=== PATIENT | female | born 1970 | race Caucasian/White ===

== ENCOUNTER 2019-10-24 19:55 | Observation (INO) ==
--- OUTSIDE RECORDS SUMMARY | 2019-10-24 19:57 | External Medical Summary | Continuity of Care Document ---
:1970 Author Name Xochilt Aguirre Address Unavailable Unavailable , Care Team Providers Name Role Phone Linwood [email or web address] [place] IZAGUIRRE Unavailable Unavailable Unavailable Unavailable Unavailable Assessments Assessed Problems:Vertigo Problems Vertigo (780.4) (R42) Allergies and Adverse Reactions Azithromycin TABS (Allergy) Penicillins (Allergy) Medications Meclizine HCl - 25 MG Oral Tablet Refills: 0 FLUoxetine HCl - 20 MG Oral Tablet Refills: 0 Kelnor 1/35 TABS Refills: 0 RA Vitamin B-12 TABS Refills: 0 Ativan 0.5 MG Oral Tablet Refills: 0 Procedures History of Tonsillectomy With Adenoidectomy Status: Completed History of Dilation And Curettage Status : Completed Immunizations Immunizations not documented Family History Mother Family history of Cancer Status: Active Father Family history of Cancer Status: Active Family history of Hypertension (V17.49) Status: Active Grandmother Family history of Diabetes Mellitus (V18.0) Status: Active Social History - Smoking Status Never smoker Plan of Treatment Planned Observations Planned Goals not documented Results No Known Results Results not documented Encounters Appointment; Sebastian Khan M.D. 21-May-2014 15:00 Encounter Diagnosis: Problem not documented
[2019-10-24 20:45] LABS: Basophils # (auto) 0.05 K/uL (0-0.2); Basophils % (auto) 0.4 %; Eosinophils # (auto) 0.11 K/uL (0-0.5); Eosinophils % (auto) 0.9 %; Hematocrit (blood only) 37.1 % (37-47); Hemoglobin 12.9 g/dL (12.0-16.0); Immature Granulocytes # (auto) 0.02 K/uL (0.00-0.02); Immature Granulocytes % (auto) 0.2 %; Lymphocytes % (auto) 20.4 %; Mean Corpuscular Hemoglobin 32.7 pg (25-34); Mean Corpuscular Hgb Conc 34.8 g/dL (32-36); Mean Corpuscular Volume 94.2 fL (80-100); Mean Platelet Volume 9.4 fL (7.4-10.4); Monocytes # (auto) 0.72 K/uL (0.11-0.59); Monocytes % (auto) 6.1 %; Neutrophils # (auto) 8.49 K/uL (1.4-6.5); Platelet Count 243 K/uL (130-400); RDW Coefficient of Variation 13.1 % (11.5-14.5); RDW Standard Deviation 45.3 fL (36.4-46.3); Red Blood Count 3.94 M/uL (4.2-5.4); White Blood Count 11.79 K/uL (4.8-10.8)
[2019-10-24 20:50] LABS: Appearance Urine Cloudy (Clear); Bacteria Urine Automated Negative (Negative); Bilirubin Urine Negative (Negative); Blood Urine 2+ (Negative); Cast Urine Automated 0 /lpf (0-5); Color Urine Yellow; Glucose Urine UA Negative (Negative); Ketones Urine 1+ (Negative); Leukocyte Esterase Urine Negative (Negative); Nitrite Urine Negative (Negative); Protein Urine Negative (Negative); Specific Gravity Urine 1.023 (1.000-1.030); Urobilinogen Urine Negative (Negative); pH Urine 5.5 (4.5-7.5)
[2019-10-24 21:01] LABS: Albumin Level 3.5 gm/dl (3.4-5.0); BUN Creatinine Ratio 26.1 (10-20); Calcium 8.7 mg/dl (8.5-10.1); Creatinine Clr Calc Pharmacy 88.2 ml/min; Est GFR (African American) 104.3
[2019-10-24 21:03] LABS: Albumin Globulin Ratio 1.1 (0.9-2); Bilirubin,Total 0.5 mg/dl (0.2-1); Globulin 3.1 gm/dl (2.5-4.0); Total Protein 6.6 gm/dl (6.4-8.2)
[2019-10-24] MEDS ORDERED: IOVERSOL 100ml IV PRN (21:11)
--- NOTE | 2019-10-24 21:44 | CT Scan Report ---
ABDOMEN AND PELVIS CT WITH IV CONTRAST CT DOSE: 372.62 mGy.cm HISTORY: Acute right lower quadrant abdominal pain pt c/o diffuse abd TECHNIQUE: Multiaxial CT images of the abdomen and pelvis were performed following the IV administrat ion of 90 cc of Optiray 320, A dose lowering technique was utilized adhering to the principles of [place] FRANK. COMPARISON STUDY: CT abdomen and pelvis 09/26/2006 FINDINGS: Clear lung bases. No pneumatosis or pneumoperitoneum. The imaged inferior cardiac chambers are unrema rkable. Spleen, pancreas, adrenal glands, gallbladder and liver appear unremarkable. Patency of the h epatic and portal veins. The kidneys and ureters appear unremarkable. Decompressed or bladder with mi ld wall thickening. Retroflexed uterus. Follicular changes of the ovaries. 2.3 cm cystic lesion right adnexum is suggestive of a dominant follicle. Trace free pelvic fluid. Aorta and IVC are unremarkabl e. There is no adenopathy. Obstructing 8 mm appendicolith within the proximal appendiceal lumen. An additional smaller appendico lith of the distal appendix is noted. The appendix is dilated and fluid-filled measuring up to 2.0 cm with mucosal hyperemia and periappendiceal inflammation. No drainable fluid collection or perforatio n. Adjacent fluid-filled loops of small bowel are suggestive of local ileus. Soft tissues are unremar kable. Bones appear to be intact. Spondylitic spurring and facet arthrosis. Reactive lymph nodes of the right lower quadrant mesentery measure up to 8 mm. IMPRESSION: 1. Acute appendicitis with obstructing appendicolith. No perforation or drainable fluid collection. 2. Fluid-filled loops of small bowel within the lower abdomen and pelvis suggest focal ileus. No collin l obstruction. 3. Trace pelvic ascites. ACT 112: Negative or not required by law. The above report was generated using voice recognition software. It may contain grammatical, syntax o r spelling errors. Electronically signed by: Supa Dc M.D. 10/24/2019 9:43 PM
[2019-10-24] MEDS ORDERED: cefOXitin 2,000 MG/60 ML BAG IV STA (21:48)
--- NOTE | 2019-10-24 23:34 | History & Physical Report ---
Date of Service October 24, 2019 Assessment & Plan (1) Appendicitis: This patient's history, physical findings, laboratories and CT findings are consistent with appendicitis. I have recommended a laparoscopic appendectomy. I explained the possible need to convert to an open procedure. I explained the possible complications associated with those procedures. The patient wishes to go ahead with surgery and has signed a consent form. History of Present Illness Chief Complaint: Right lower quadrant pain Primary Care Provider: Herve Whitley MD This is a 48-year-old female who presented to the emergency room with a complaint of pain now centered in the right lower quadrant. The discomfort began as a dull ache-like sensation throughout her abdomen and began yesterday morning. As yesterday progressed the pain became more sharp and then seemed to localize to the right lower quadrant. When she awoke this morning the pain was much worse. It continued to increase in intensity and became quite sharp. It is exacerbated by motion. She has never had pain like this before. She had no fever but said she felt cold. She has not had any change in her bowel habits and denies melena and hematochezia. She denies dysuria and hematuria. Allergies Allergy/AdvReac Type Severity Reaction Status Date / Time Penicillins Allergy Unknown Verified 10/24/19 20:22 Home Medications Home Medications Medication Instructions Recorded Confirmed Type acetaminophen [Tylenol] 325 mg PO QID PRN 10/24/19 10/24/19 History fluoxetine 20 mg PO QAM 10/24/19 10/24/19 History lorazepam 0.5 mg SUBLINGUAL BID PRN 10/24/19 10/24/19 History norethindrone (contraceptive) 0.35 mg PO DAILY@1700 10/24/19 10/24/19 History simethicone 125 mg PO UD 10/24/19 10/24/19 History Past Med/Surg History Medical History (Updated 10/24/19 @ 23:37 by Morgan Cardozo MD) Anxiety and depression Menopause Surgical History (Updated 10/24/19 @ 23:32 by Morgan Cardozo MD) S/P D&C (status post dilation and curettage) Status post tonsillectomy Social History (Updated 10/24/19 @ 23:33 by Morgan Cardozo MD) Preferred Language: Maltese marital status: Feels Safe at Home: Yes Smoking Status: Never smoker Hx Alcohol Use: No Review of Systems Review of Systems: All systems reviewed & are unremarkable except as noted in HPI & below Physical Exam Constitutional: no acute distress Neck: trachea midline Respiratory: normal respiratory effort, lungs clear to auscultation Cardiovascular: Rate/Rhythm: regular rate and regular rhythm Gastrointestinal (Abdomen): Inspection/Auscultation: abdomen not distended Percussion/Palpation: + abdomen tender (Right lower quadrant with referred tenderness from the left lower quadrant) and abdomen soft Skin: no rashes, warm and dry Lymphatic: no cervical lymphadenopathy Results & Data Vital Signs (Past 12 Hours) Vital Signs Temp Pulse Pulse Resp BP BP Pulse Ox 10/24/19 23:26 65 18 127/73 95 10/24/19 22:02 66 66 16 124/79 98 10/24/19 19:59 36.5 C 78 18 122/81 99 Laboratory Results 10/24/19 10/24/19 10/24/19 Range/Units 20:30 20:30 20:30 WBC 11.79 H (4.8-10.8) K/uL RBC 3.94 L (4.2-5.4) M/uL Hgb 12.9 (12.0-16.0) g/dL Hct 37.1 (37-47) % MCV 94.2 (80-100) fL MCH 32.7 (25-34) pg MCHC 34.8 (32-36) g/dL RDW Std Deviation 45.3 (36.4-46.3) fL RDW Coeff of Erma 13.1 (11.5-14.5) % Plt Count 243 (130-400) K/uL MPV 9.4 (7.4-10.4) fL Immature Gran % (Auto) 0.2 % Neut % (Auto) 72.0 % Lymph % (Auto) 20.4 % [place] % (Auto) 6.1 % Eos % (Auto) 0.9 % Baso % (Auto) 0.4 % Immature Gran # (Auto) 0.02 (0.00-0.02) K/uL Neut # (Auto) 8.49 H (1.4-6.5) K/uL Lymph # (Auto) 2.40 (1.2-3.4) K/uL [place] # (Auto) 0.72 H (0.11-0.59) K/uL Eos # (Auto) 0.11 (0-0.5) K/uL Baso # (Auto) 0.05 (0-0.2) K/uL Sodium 138 (136-145) mmol/L Potassium 4.0 (3.5-5.1) mmol/L Chloride 108 H (98-107) mmol/L Carbon Dioxide 25 (21-32) mmol/L Anion Gap 6.0 (3-11) BUN 20 H (7-18) mg/dl Creatinine 0.77 (0.6-1.2) mg/dl Est Cr Clr Drug Dosing 88.2 ml/min Est GFR ( Amer) 104.3 Est GFR (Non-Af Amer) 90.0 BUN/Creatinine Ratio 26.1 H (10-20) Glucose 103 H (70-99) mg/dl Calcium 8.7 (8.5-10.1) mg/dl Total Bilirubin 0.5 (0.2-1) mg/dl AST 11 L (15-37) U/L ALT 16 (12-78) U/L Alkaline Phosphatase 59 (45-117) U/L Total Protein 6.6 (6.4-8.2) gm/dl Albumin 3.5 (3.4-5.0) gm/dl Globulin 3.1 (2.5-4.0) gm/dl Albumin/Globulin Ratio 1.1 (0.9-2) Lipase 99 (73-393) U/L Urine Color Yellow Urine Appearance Cloudy A (Clear) Urine pH 5.5 (4.5-7.5) Ur Specific [place] 1.023 (1.000-1.030) Urine Protein Negative (Negative) Urine Glucose (UA) Negative (Negative) Urine Ketones 1+ H (Negative) Urine Blood 2+ H (Negative) Urine Nitrite Negative (Negative) Urine Bilirubin Negative (Negative) Urine Urobilinogen Negative (Negative) Ur Leukocyte Esterase Negative (Negative) Urine WBC (Auto) 1-5 (0-5) /hpf Urine RBC (Auto) 10-30 H (0-4) /hpf U Hyaline Cast (Auto) 0 (0-5) /lpf U Epithel Cells (Auto) 10-20 H (0-5) /lpf Urine Bacteria (Auto) Negative (Negative) Diagnostic Findings I reviewed the images as well as the report ABDOMEN AND PELVIS CT WITH IV CONTRAST CT DOSE: 372.62 mGy.cm HISTORY: Acute right lower quadrant abdominal pain pt c/o diffuse abd TECHNIQUE: Multiaxial CT images of the abdomen and pelvis were performed following the IV administration of 90 cc of Optiray 320, A dose lowering technique was utilized adhering to the principles of ALARA. COMPARISON STUDY: CT abdomen and pelvis 09/26/2006 FINDINGS: Clear lung bases. No pneumatosis or pneumoperitoneum. The imaged inferior cardiac chambers are unremarkable. Spleen, pancreas, adrenal glands, gallbladder and liver appear unremarkable. Patency of the hepatic and portal veins. The kidneys and ureters appear unremarkable. Decompressed or bladder with mild wall thickening. Retroflexed uterus. Follicular changes of the ovaries. 2.3 cm cystic lesion right adnexum is suggestive of a dominant follicle. Trace free pelvic fluid. Aorta and IVC are unremarkable. There is no adenopathy. Obstructing 8 mm appendicolith within the proximal appendiceal lumen. An additional smaller appendicolith of the distal appendix is noted. The appendix is dilated and fluid-filled measuring up to 2.0 cm with mucosal hyperemia and periappendiceal inflammation. No drainable fluid collection or perforation. Adjacent fluid-filled loops of small bowel are suggestive of local ileus. Soft tissues are unremarkable. Bones appear to be intact. Spondylitic spurring and facet arthrosis. Reactive lymph nodes of the right lower quadrant mesentery measure up to 8 mm. IMPRESSION: 1. Acute appendicitis with obstructing appendicolith. No perforation or drainable fluid collection. 2. Fluid-filled loops of small bowel within the lower abdomen and pelvis suggest focal ileus. No bowel obstruction. 3. Trace pelvic ascites. (1) Appendicitis Appendicitis type: acute appendicitis Acute appendicitis type: with localized peritonitis Appendicitis perforation presence: without perforation Appendicitis abscess presence: without abscess
[2019-10-24] MEDS ORDERED: HEPARIN (PORCINE) 1000 UNIT/ML 10 ML (CATH LAB USE ONLY) ONE (23:59)
[2019-10-24] MEDS ORDERED: CEFAZOLIN 250 MG/ML 1 GM VIAL ONE (23:59)
[2019-10-24] MEDS ORDERED: BUPIVACAINE 0.5 % 5 MG/1 ML MPF 30ML VIAL ONE (23:59)
--- NOTE | 2019-10-25 00:29 | Anesthesiology Consultation ---
Date of Service October 25, 2019 Assessment & Plan Chart Review Chart Review: Acceptable Risk for Surgery Consults Requested none History Surgery Operation Date: 10/24/19 23:50 Proposed Procedures p Laparoscopic Appendectomy - Morgan Cardozo MD Height/Weight Height: 5 ft 8 in Weight: 73.3 kg Allergies Allergy/AdvReac Type Severity Reaction Status Date / Time Penicillins Allergy Unknown Verified 10/24/19 20:22 Medications Home Medications Medication Instructions Recorded Confirmed Last Taken acetaminophen [Tylenol] 325 mg PO QID PRN 10/24/19 10/24/19 10/24/19 08:00 650 mg fluoxetine 20 mg PO QAM 10/24/19 10/24/19 10/24/19 lorazepam 0.5 mg SUBLINGUAL BID PRN 10/24/19 10/24/19 10/22/19 norethindrone (contraceptive) 0.35 mg PO DAILY@1700 10/24/19 10/24/19 10/24/19 17:00 simethicone 125 mg PO UD 10/24/19 10/24/19 10/24/19 16:00 2 tablets Active Medications Generic Name Dose Route Start Last Admin Trade Name Freq PRN Reason Stop Dose Admin Ioversol 90 ml 10/24/19 21:11 10/24/19 21:11 Optiray 320 100ml IV 10/28/19 21:10 90 ml ONCE PRN Administration Interaction Checking NPO Date Last Intake of Fluids: 10/24/19 Time Last Intake of Fluids: 16:00 Date Last Intake of Solids: 10/24/19 Time Last Intake of Solids: 16:00 Past Medical History Medical History (Updated 10/24/19 @ 23:37 by Morgan Cardozo MD) Anxiety and depression Menopause Exercise / Class Metabolic Activity II 4-5 Yardwork/Stairs/Walk up hill Past Surgical History Surgical History (Updated 10/24/19 @ 23:32 by Morgan Cardozo MD) S/P D&C (status post dilation and curettage) Status post tonsillectomy Past Anesthesia History No Hx of Anesthesia Complications and No Family Hx of Anesthesia Complications History of PONV No Hx of PONV and No Hx of Motion Sickness Social History Smoking Status: Never smoker Hx Alcohol Use: No Physical Exam Vital Signs Last Vital Signs Temp 36.5 C 10/24/19 19:59 Pulse 64 10/25/19 00:05 Resp 18 10/25/19 00:05 BP 119/64 10/25/19 00:05 Pulse Ox 96 10/25/19 00:05 Testing Laboratory Results 10/24/19 20:30 10/24/19 20:30 Urine Color Yellow 10/24/19 20:30 Urine Appearance Cloudy (Clear) A 10/24/19 20:30 Urine pH 5.5 (4.5-7.5) 10/24/19 20:30 Ur Specific [place] 1.023 (1.000-1.030) 10/24/19 20:30 Urine Protein Negative (Negative) 10/24/19 20:30 Urine Glucose (UA) Negative (Negative) 10/24/19 20: Urine Ketones 1+ (Negative) H 10/24/19 20:30 Urine Nitrite Negative (Negative) 10/24/19 20:30 Ur Leukocyte Esterase Negative (Negative) 10/24/19 20:30 Urine WBC (Auto) 1-5 /hpf (0-5) 10/24/19 20:30 Urine RBC (Auto) 10-30 /hpf (0-4) H 10/24/19 20:30 U Hyaline Cast (Auto) 0 /lpf (0-5) 10/24/19 20:30 U Epithel Cells (Auto) 10-20 /lpf (0-5) H 10/24/19 20:30 Urine Bacteria (Auto) Negative (Negative) 10/24/19 20:30
[2019-10-25] MEDS ORDERED: ONDANSETRON INJ 2 MG/ML 2 ML VIAL IV PRN ×2 (00:30→03:23)
[2019-10-25] MEDS ORDERED: HYDROmorphone INJ 1 MG/ML SYRINGE IV PRN (00:30)
[2019-10-25] MEDS ORDERED: MoRPHine SULFATE 10 MG/ML CARP/VIAL IV PRN (00:30)
[2019-10-25] MEDS ORDERED: HYDROmorphone INJ 2 MG/ML SYR/VIAL IV PRN (00:30)
[2019-10-25] MEDS ORDERED: METOCLOPRAMIDE HCL INJ 5 MG/ML 2 ML VIAL IV PRN (00:30)
[2019-10-25] MEDS ORDERED: ATROPINE SULFATE 0.1 MG/ML 10ML SYR IV PRN (00:30)
[2019-10-25] MEDS ORDERED: PROMETHAZINE HCL 12.5 MG in SODIUM CHLORIDE 0.9% 50 ML IV PRN (00:30)
[2019-10-25] MEDS ORDERED: ePHEDrine sulfate 50 MG/ML AMP IV PRN (00:30)
[2019-10-25] MEDS ORDERED: MIDAZOLAM HCL 1 MG/ML 2ML VIAL ONE (00:33)
[2019-10-25] MEDS ORDERED: fentaNYL citrate 100 MCG/2 ML VIAL ONE ×2 (00:33→02:10)
[2019-10-25] MEDS ORDERED: NEOSTIGMINE METHYLSULFATE 5 MG/5 ML SYR ONE (00:59)
[2019-10-25] MEDS ORDERED: GLYCOPYRROLATE 0.2 MG/ML VIAL ONE (00:59)
[2019-10-25] MEDS ORDERED: PROPOFOL IV EMULSION 10 MG/ML 20 ML VIAL IV ONE (00:59)
[2019-10-25] MEDS ORDERED: ONDANSETRON INJ 2 MG/ML 2 ML VIAL ONE ×2 (00:59→02:10)
[2019-10-25] MEDS ORDERED: DEXAMETHASONE SOD INJ 4 MG/ML VIAL ONE (00:59)
[2019-10-25] MEDS ORDERED: ROCURONIUM BROMID 50MG/5ML SYR ONE (00:59)
--- NOTE | 2019-10-25 01:09 | Emergency Department Note ---
Entered by Angelina Cox acting as a scribe for History of Present Illness General Chief complaint: Abdominal Pain Stated complaint: ABDOMINAL PAIN Time Seen by Provider: 10/24/19 20:06 History of Present Illness Provider complaint: abdominal pain Onset (ago): day(s) 1 Location: abdomen Radiation: back and extremity (left lower) Pain Consistency: + other (worsening) Maximum Pain Intensity: 7 Associated symptoms: + other (started on right side but now all over, small bowel movement today, not eating much, going through menopause, under a lot of stress, negative ) The patient is a 48 year old female who presents to the ED with complaints of worsening abdominal pain that started 1 day ago. The patient states that the pain was mostly on her right side but now it is all over her abdomen. The patient states that her pain radiates to her back and left leg. The patient notes that she has not been eating much and she had a small bowel movement today that was normal. The patient notes that she is going through menopause and has been under a lot of stress lately. The patient states that she took a test today and it was negative. Home Medications Home Medications Medication Instructions Recorded Confirmed Type acetaminophen [Tylenol] 325 mg PO QID PRN 10/24/19 10/24/19 History fluoxetine 20 mg PO QAM 10/24/19 10/24/19 History lorazepam 0.5 mg SUBLINGUAL BID PRN 10/24/19 10/24/19 History norethindrone (contraceptive) 0.35 mg PO DAILY@1700 10/24/19 10/24/19 History simethicone 125 mg PO UD 10/24/19 10/24/19 History Allergies Allergy/AdvReac Type Severity Reaction Status Date / Time Penicillins Allergy Unknown Verified 10/24/19 20:22 Past Med/Surg History Medical History (Updated 10/25/19 @ 01:09 by Donald Smith MD) Anxiety and depression Menopause Surgical History (Updated 10/24/19 @ 23:32 by Morgan Cardozo MD) S/P D&C (status post dilation and curettage) Status post tonsillectomy Social History (Updated 10/24/19 @ 23:33 by Morgan Cardozo MD) Preferred Language: Kazakh marital status: Feels Safe at Home: Yes Smoking Status: Never smoker Hx Alcohol Use: No Review of Systems See HPI for pertinent positives & negatives. and A total of 10 systems reviewed and were otherwise negative Physical Exam Vital Signs Vital Signs - 24 hr 10/24/19 19:59 10/24/19 22:02 10/24/19 23:26 Temperature 36.5 C Temperature Source Oral Pulse Rate 78 66 Pulse Rate [Right Finger] 66 65 Pulse Rhythm Regular Respiratory Rate 18 16 18 Respiratory Effort / Characteristics Non-Labored Spontaneous Respiratory Depth Normal Normal Respiratory Pattern Regular Blood Pressure 122/81 Blood Pressure [Right Arm] 124/79 127/73 Blood Pressure Mean 94 Blood Pressure Mean [Right Arm] 94 91 Blood Pressure Position Sitting Blood Pressure Position [Right Arm] Lying Pulse Oximetry 99 98 95 Oxygen Delivery Method Room Air Room Air Room Air Sepsis Recent Fever Within 48 Hours No Sepsis Action Taken by Nursing No Action Required 10/25/19 00:05 Temperature Temperature Source Pulse Rate Pulse Rate [Right Finger] 64 Pulse Rhythm Respiratory Rate 18 Respiratory Effort / Characteristics Respiratory Depth Respiratory Pattern Blood Pressure Blood Pressure [Right Arm] 119/64 Blood Pressure Mean Blood Pressure Mean [Right Arm] 82 Blood Pressure Position Blood Pressure Position [Right Arm] Pulse Oximetry 96 Oxygen Delivery Method Room Air Sepsis Recent Fever Within 48 Hours Sepsis Action Taken by Nursing GENERAL: Awake, alert, well-appearing, in no acute distress HENT: Normocephalic, atraumatic. Oropharynx unremarkable. EYES: Normal conjunctiva. Sclera non-icteric. NECK: Supple. No nuchal rigidity. FROM. No JVD. RESPIRATORY: Clear to auscultation. CARDIAC: Regular rate, normal rhythm. Extremities warm and well perfused. Pulses equal. ABDOMEN: Soft, non-distended. RLQ tenderness. Positive rebound, positive guard ing. No masses. RECTAL: Deferred. MUSCULOSKELETAL: Chest examination reveals no tenderness. The back is symmetrical on inspection without obvious abnormality. There is no CVA tenderness to palpation. No joint edema. LOWER EXTREMITIES: Calves are equal size bilaterally and non-tender. No edema. No discoloration. NEURO: Normal sensorium. No sensory or motor deficits noted. SKIN: No rash or jaundice noted. Course Course 2009: Past medical records reviewed. The patient was evaluated in room B03B. A complete history and physical exam was performed. 2130: I updated the patient on the test results. 2147: I discussed the patient's case with Dr. Cardozo- General Surgery. He will evaluate the patient for further management. Consultations Consultation #1: I discussed the patient's case with Dr. Cardozo- General Surgery. He will evaluate the patient for further management. Time: 21:48 Administered Medications Ioversol (Optiray 320 100ml) 90 ml IV ONCE PRN PRN Reason: Interaction Checking Stop: 10/28/19 21:10 Last Admin: 10/24/19 21:11 Dose: 90 ml Documented by: [id number] Discontinued Medications Cefoxitin Sodium (Mefoxin) 2,000 mg in 60 mls @ 100 mls/hr IV NOW STA Stop: 10/24/19 22:23 Last Infusion: 10/24/19 22:48 Dose: 0 mls/hr Documented by: [id number] Admin: 10/24/19 22:01 Dose: 100 mls/hr Documented by: [id number] Medical Decision Making Differential Diagnosis Differential diagnosis: Etiologies such as biliary colic, cholecystitis, hepatitis, perihepatitis, pancreatitis, cardiac disease, pancreatitis, gastritis, peptic ulcer disease, appendicitis, ovarian cyst, ovarian torsion, ectopic , pelvic inflammatory disease, cystitis, diverticulitis, mesenteric ischemia, inflammator y bowel disease, ileus, bowel obstruction, aortic pathology, shingles, as well as others were considered. Medical Records Attestation: I reviewed the patient's medical records. Home Medications Current Medication List: was personally reviewed by me Laboratory Data Attestation: I reviewed the patient's lab results. Result diagrams: 10/24/19 20:30 10/24/19 20:30 Lab Results 10/24/19 10/24/19 10/24/19 Range/Units 20:30 20:30 20:30 WBC 11.79 H (4.8-10.8) K/uL RBC 3.94 L (4.2-5.4) M/uL Hgb 12.9 (12.0-16.0) g/dL Hct 37.1 (37-47) % MCV 94.2 (80-100) fL MCH 32.7 (25-34) pg MCHC 34.8 (32-36) g/dL RDW Std Deviation 45.3 (36.4-46.3) fL RDW Coeff of Erma 13.1 (11.5-14.5) % Plt Count 243 (130-400) K/uL MPV 9.4 (7.4-10.4) fL Immature Gran % (Auto) 0.2 % Neut % (Auto) 72.0 % Lymph % (Auto) 20.4 % [place] % (Auto) 6.1 % Eos % (Auto) 0.9 % Baso % (Auto) 0.4 % Immature Gran # (Auto) 0.02 (0.00-0.02) K/uL Neut # (Auto) 8.49 H (1.4-6.5) K/uL Lymph # (Auto) 2.40 (1.2-3.4) K/uL [place]ferro # (Auto) 0.72 H (0.11-0.59) K/uL Eos # (Auto) 0.11 (0-0.5) K/uL Baso # (Auto) 0.05 (0-0.2) K/uL Sodium 138 (136-145) mmol/L Potassium 4.0 (3.5-5.1) mmol/L Chloride 108 H (98-107) mmol/L Carbon Dioxide 25 (21-32) mmol/L Anion Gap 6.0 (3-11) BUN 20 H (7-18) mg/dl Creatinine 0.77 (0.6-1.2) mg/dl Est Cr Clr Drug Dosing 88.2 ml/min Est GFR ( Amer) 104.3 Est GFR (Non-Af Amer) 90.0 BUN/Creatinine Ratio 26.1 H (10-20) Glucose 103 H (70-99) mg/dl Calcium 8.7 (8.5-10.1) mg/dl Total Bilirubin 0.5 (0.2-1) mg/dl AST 11 L (15-37) U/L ALT 16 (12-78) U/L Alkaline Phosphatase 59 (45-117) U/L Total Protein 6.6 (6.4-8.2) gm/dl Albumin 3.5 (3.4-5.0) gm/dl Globulin 3.1 (2.5-4.0) gm/dl Albumin/Globulin Ratio 1.1 (0.9-2) Lipase 99 (73-393) U/L Urine Color Yellow Urine Appearance Cloudy A (Clear) Urine pH 5.5 (4.5-7.5) Ur Specific [place] 1.023 (1.000-1.030) Urine Protein Negative (Negative) Urine Glucose (UA) Negative (Negative) Urine Ketones 1+ H (Negative) Urine Blood 2+ H (Negative) Urine Nitrite Negative (Negative) Urine Bilirubin Negative (Negative) Urine Urobilinogen Negative (Negative) Ur Leukocyte Esterase Negative (Negative) Urine WBC (Auto) 1-5 (0-5) /hpf Urine RBC (Auto) 10-30 H (0-4) /hpf U Hyaline Cast (Auto) 0 (0-5) /lpf U Epithel Cells (Auto) 10-20 H (0-5) /lpf Urine Bacteria (Auto) Negative (Negative) Imaging Data Radiologist's Impression: Radiology results as stated below per my review and the radiologist's interpretation: ABDOMEN AND PELVIS CT WITH IV CONTRAST CT DOSE: 372.62 mGy.cm HISTORY: Acute right lower quadrant abdominal pain pt c/o diffuse abd TECHNIQUE: Multiaxial CT images of the abdomen and pelvis were performed following the IV administration of 90 cc of Optiray 320, A dose lowering technique was utilized adhering to the principles of ALARA. COMPARISON STUDY: CT abdomen and pelvis 09/26/2006 FINDINGS: Clear lung bases. No pneumatosis or pneumoperitoneum. The imaged inferior cardiac chambers are unremarkable. Spleen, pancreas, adrenal glands, gallbladder and liver appear unremarkable. Patency of the hepatic and portal veins. The kidneys and ureters appear unremarkable. Decompressed or bladder with mild wall thickening. Retroflexed uterus. Follicular changes of the ovaries. 2.3 cm cystic lesion right adnexum is suggestive of a dominant follicle. Trace free pelvic fluid. Aorta and IVC are unremarkable. There is no adenopathy. Obstructing 8 mm appendicolith within the proximal appendiceal lumen. An additional smaller appendicolith of the distal appendix is noted. The appendix is dilated and fluid-filled measuring up to 2.0 cm with mucosal hyperemia and periappendiceal inflammation. No drainable fluid collection or perforation. Adjacent fluid-filled loops of small bowel are suggestive of local ileus. Soft tissues are unremarkable. Bones appear to be intact. Spondylitic spurring and facet arthrosis. Reactive lymph nodes of the right lower quadrant mesentery measure up to 8 mm. IMPRESSION: 1. Acute appendicitis with obstructing appendicolith. No perforation or drainable fluid collection. 2. Fluid-filled loops of small bowel within the lower abdomen and pelvis suggest focal ileus. No bowel obstruction. 3. Trace pelvic ascites. ACT 112: Negative or not required by law. The above report was generated using voice recognition software. It may contain grammatical, syntax or spelling errors. Electronically signed by: Supa Dc M.D. 10/24/2019 9:43 PM Blood Pressure Blood Pressure Findings: Elevated blood pressure Blood Pressure Disposition: further management by hospitalist DUTCH Narrative This is a 48-year-old female who presents emergency department complaining of right lower quadrant abdominal pain. The patient does have an elevation in her white blood cell count 11.79. Using shared medical decision making with the patient patient was sent for CAT scan the abdomen pelvis. This was concerning for acute appendicitis. For this reason the patient was started on Mefoxin. I did discuss the case with the surgeon on-call who agreed to take the patient to the operating room. Patient and family were in agreement with the treatment plan. Impression & Plan Abdominal pain, Appendicitis Discharge Plan Visit Data *Final* Discharge Date/Time: 10/25/19 00:07 Chief Complaint: Abdominal Pain Stated Complaint: ABDOMINAL PAIN ED Provider: Donald Smith Discharge Problem: Abdominal pain, Appendicitis Patient Disposition: Being Evaluated by Surgeon Discharge Instructions Interventions: ED Discharge Assessment Last Done: 10/25/19 00:07 Discharge Problem: Abdominal pain Qualifiers: Abdominal location: right lower quadrant Qualified Code(s): R10.31 - Right lower quadrant pain Appendicitis Qualifiers: Appendicitis type: acute appendicitis Acute appendicitis type: unspecified acute appendicitis type Qualified Code(s): K35.80 - Unspecified acute appendicitis The scribe's documentation has been prepared under my direction and personally reviewed by me in its entirety. I confirm that the note above accurately reflects all work, treatment, procedures, and medical decision making performed by me.
--- NOTE | 2019-10-25 01:54 | Post Operative Brief Note ---
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
[2019-10-25] MEDS: fentaNYL citrate 100 MCG/2 ML VIAL IV PRN ×4 (02:11→02:26)
--- NOTE | 2019-10-25 02:21 | Anesthesiology Progress Note ---
Date of Service October 25, 2019 Anesthesia Post Procedure Vital Signs Vital Signs: Temp Pulse Pulse Pulse Resp BP BP 10/25/19 02:20 57 L 15 112/62 10/25/19 02:10 53 L 15 111/65 10/25/19 02:03 36.5 C 51 L 14 110/59 L 10/25/19 00:05 64 18 10/24/19 23:26 65 18 10/24/19 22:02 66 66 16 10/24/19 19:59 36.5 C 78 18 122/81 BP Pulse Ox 10/25/19 02:20 97 10/25/19 02:10 98 10/25/19 02:03 100 10/25/19 00:05 119/64 96 10/24/19 23:26 127/73 95 10/24/19 22:02 124/79 98 10/24/19 19:59 99 Pain Intensity Abdomen: Pain Intensity: 6 Transfer of Care Handoff Completed per policy Notes Mental Status: alert / awake / arousable and participated in evaluation Patient Amnestic to Procedure: Yes Nausea / Vomiting: adequately controlled Pain: adequately controlled Airway Patency, RR, SpO2: stable & adequate BP & HR: stable & adequate Hydration State: stable & adequate Anesthetic Complications: no major complications apparent
[2019-10-25] MEDS ORDERED: ACETAMINOPHEN 1,000 MG/100 ML VIAL IV STA (02:24)
[2019-10-25] MEDS ORDERED: ACETAMINOPHEN 1000 MG/100 ML IV IV ONE (02:26)
[2019-10-25] MEDS ORDERED: LORazepam 0.5 MG TAB SL PRN (03:23)
[2019-10-25] MEDS ORDERED: ACETAMINOPHEN 325 MG TAB PO PRN (03:23)
[2019-10-25] MEDS ORDERED: OXYCODONE/ACETAMINOPHEN 5mg/325mg TAB PO PRN (03:23)
[2019-10-25] MEDS ORDERED: MoRPHine SULFATE 4 MG/ML 1 ML CARP\\VIAL IV PRN (03:23)
[2019-10-25] MEDS ORDERED: SIMETHICONE 80 MG CHEW PO PRN (03:45)
[2019-10-25] MEDS: D5W AND 1/2NSS + 20MEQ KCL 20 MEQ/1,000 ML BAG IV SCH ×2 (04:02→14:01)
--- NOTE | 2019-10-25 07:56 | Operative Report ---
DATE OF OPERATION: 10/25/2019 PREOPERATIVE DIAGNOSIS: Appendicitis. POSTOPERATIVE DIAGNOSIS: Appendicitis. PROCEDURE: Laparoscopic appendectomy. SURGEON: Morgan Cardozo MD. FINDINGS: The appendix in its distal four-fifths was dilated markedly. It was hyperemic and firm. The base of the appendix and the cecum at the base of the appendix were normal. There was no evidence of perforation or abscess. TECHNIQUE: The patient was given a general anesthetic and the area was prepped and draped in the usual sterile fashion. Transverse incision was made below the umbilicus, carried down through the subcutaneous tissue to the fascia which was grasped with 2 Onesimo clamps and incised between. The peritoneum was identified, incised and the introducer was placed bluntly. The abdomen was then insufflated to a pressure of 15 mmHg with carbon dioxide. The skin had been anesthetized with 0.5% Marcaine prior to incision. A site for the lower midline introducer was chosen. Skin incision was made and the introducer was placed under direct vision. The appendix was easily identified lying inferior to the cecum. The left lower quadrant introducer was placed under direct vision through small skin incision. I was able to elevate the appendix away from the posterior abdominal wall and elevate it. There were some other thicker attachments to the lateral abdominal wall that were divided using cautery. This allowed me to then elevate the appendix and separate it bluntly away from the remainder of the floor of the canal and from the mesentery of the cecum. That then allowed me to identify the medial wall and I was able to separate that away from the mesentery of the cecum as well. This allowed me then to expose with confidence and identify the base of the appendix. I was able to establish a plane between the mesoappendix and the base of the appendix. It was difficult to elevate the tip of the appendix away from the mesentery of the cecum and so I used Endo-CHINA stapler and amputated the appendix at its base. That allowed me then to place traction near the staple line and allowed me then to further separate the mesoappendix away from the cecum and away from the mesentery of the cecum until it was completely freed. I then divided the mesoappendix with the Endo-CHINA stapler. The appendix was placed into an Endobag and brought out through the left lower quadrant introducer site. That introducer was replaced. The right lower quadrant was irrigated. There was 1 area of oozing near the staple line and the mesoappendix was easily controlled with cautery. Further irrigation was performed. The irrigation was removed. The staple lines were inspected and there was no bleeding. Any irrigation that entered the pelvis or the right upper quadrant was then removed. The staple lines were inspected another time and there was no bleeding. The gas was allowed to escape and the introducers were removed. The fascia of the umbilical and left lower quadrant introducer sites was closed with interrupted 0 Vicryl and skin of all the incisions was closed with 4-0 Monocryl in either an interrupted or running subcuticular fashion. Further local was placed. The skin was cleansed, dried, benzoin placed, Steri-Strips applied. Estimated blood loss was 5 mL. Sponge, needle and instrument counts were correct prior to closure. The patient tolerated the surgical procedure without complication and was transferred to recovery. I attest to the content of the Intraoperative Record and any orders documented therein. Any exception s are noted below.
[2019-10-25] MEDS ORDERED: ORAL CONTRACEPTIVE~ORDER AWAITING ACTION SCH (08:00)
[2019-10-25] MEDS: FLUOXETINE HCL 20 MG CAP PO SCH (09:40)
--- NOTE | 2019-10-25 10:08 | Surgery Progress Note ---
Date of Service October 25, 2019 Assessment & Plan (1) Appendicitis: Postoperative day 0 status post laparoscopic appendectomy Hemodynamically stable Having some nausea but has not vomited Would not discharge at present due to nausea, if this improves this afternoon we can reevaluate otherwise she will need to stay until tomorrow Encouraged ambulation Subjective Postoperative day 0 status post laparoscopic appendectomy for acute appendicitis Having mild discomfort Preoperative pain is resolved Has nausea but has not vomited Ate a little bit this morning for breakfast but appetite has not yet returned Physical Exam Gastrointestinal (Abdomen): Inspection/Auscultation: normal bowel sounds; abdomen not distended Percussion/Palpation: + abdomen tender (Incisional) and abdomen soft Results & Data Vital Signs (Past 12 Hours) Vital Signs Temp Pulse Pulse Resp BP BP Pulse Ox 10/25/19 07:38 36.6 C 55 L 16 108/63 96 10/25/19 06:20 36.7 C 55 L 14 99/59 L 95 10/25/19 05:20 36.8 C 59 L 14 101/63 94 10/25/19 04:20 36.5 C 58 L 14 105/65 95 10/25/19 03:50 36.6 C 57 L 16 108/65 94 10/25/19 03:20 36.9 C 55 L 14 109/69 96 10/25/19 03:05 58 L 16 105/60 93 10/25/19 02:50 58 L 16 106/62 93 10/25/19 02:40 36.7 C 56 L 16 105/62 93 10/25/19 02:30 63 15 107/66 97 10/25/19 02:20 57 L 15 112/62 97 10/25/19 02:10 53 L 15 111/65 98 10/25/19 02:03 36.5 C 51 L 14 110/59 L 100 10/25/19 00:05 64 18 119/64 96 10/24/19 23:26 65 18 127/73 95 (1) Appendicitis Appendicitis type: acute appendicitis Acute appendicitis type: unspecified acute appendicitis type Qualified Code(s): K35.80 - Unspecified acute appendicitis
[2019-10-25] MEDS: PATIENT'S OWN ORAL CONTRACEPTIVE PO SCH (16:22)
[2019-10-26] MEDS: D5W AND 1/2NSS + 20MEQ KCL 20 MEQ/1,000 ML BAG IV SCH ×2 (00:08→11:26)
[2019-10-26] MEDS ORDERED: TRAMADOL HCL 50 MG TABLET PO PRN (07:45)
[2019-10-26] MEDS ORDERED: ACETAMINOPHEN 325 MG TAB PO PRN (07:45)
--- NOTE | 2019-10-26 07:51 | Surgery Progress Note ---
Date of Service October 26, 2019 Assessment & Plan (1) Appendicitis: Postoperative day 1 status post laparoscopic appendectomy Hemodynamically stable Nausea improved Plan: PO tylenol prn pain 650 mg every 6 hours as needed Tramadol ordered prn pain Decrease IV fluids to 50 mls/hr for now if tolerates breakfast dc fluids Encouraged ambulation if does well can discharge home, will evaluate later this morning Subjective feeling better, nausea improved passing gas this morning has not ambulated hallway tolerated regular diet last night no chest pain or SOB Physical Exam Constitutional: WD/WN, vitals as above no acute distress Respiratory: normal respiratory effort Gastrointestinal (Abdomen): Inspection/Auscultation: abdomen normal to inspection; abdomen not distended Percussion/Palpation: + abdomen tender (at incisions only) and abdomen soft; no guarding and abdomen not rigid Skin: no rashes, warm and dry Psychiatric: A+Ox3, euthymic affect Results & Data Vital Signs (Past 12 Hours) Vital Signs Temp Pulse Resp BP Pulse Ox 10/26/19 02:44 36.7 C 55 L 16 107/68 94 10/25/19 23:11 36.6 C 57 L 16 107/66 94 (1) Appendicitis Appendicitis type: acute appendicitis Acute appendicitis type: unspecified acute appendicitis type Qualified Code(s): K35.80 - Unspecified acute appendicitis
--- NOTE | 2019-10-26 08:03 | Anesthesiology Progress Note ---
Date of Service October 26, 2019 Anesthesia Post Procedure Vital Signs Vital Signs: Temp Pulse Pulse Resp BP Pulse Ox 10/26/19 07:50 36.6 C 51 L 19 126/80 96 10/26/19 07:00 36.8 C 57 L 18 119/63 95 10/26/19 02:44 36.7 C 55 L 16 107/68 94 10/25/19 23:11 36.6 C 57 L 16 107/66 94 10/25/19 15:06 36.8 C 57 L 16 107/67 95 10/25/19 12:10 37.0 C 58 L 16 103/63 96 Pain Intensity Abdomen: Pain Intensity: 2 Right Shoulder: Pain Intensity: 5 Notes Mental Status: alert / awake / arousable and participated in evaluation Nausea / Vomiting: adequately controlled Pain: adequately controlled Airway Patency, RR, SpO2: stable & adequate BP & HR: stable & adequate Hydration State: stable & adequate
[2019-10-26] MEDS: FLUOXETINE HCL 20 MG CAP PO SCH (09:05)
[2019-10-26] MEDS: PATIENT'S OWN ORAL CONTRACEPTIVE PO SCH (09:05)
--- NOTE | 2019-10-27 10:32 | Discharge Summary ---
Date of Service October 27, 2019 Admission HPI Per Admitting Provider This is a 48-year-old female who presented to the emergency room with a complaint of pain now centered in the right lower quadrant. The discomfort began as a dull ache-like sensation throughout her abdomen and began yesterday morning. As yesterday progressed the pain became more sharp and then seemed to localize to the right lower quadrant. When she awoke this morning the pain was much worse. It continued to increase in intensity and became quite sharp. It is exacerbated by motion. She has never had pain like this before. She had no fever but said she felt cold. She has not had any change in her bowel habits and denies melena and hematochezia. She denies dysuria and hematuria. Principal Diagnosis Acute Appendicitis Discharge Data Allergies Allergy/AdvReac Type Severity Reaction Status Date / Time Penicillins Allergy Unknown Verified 10/24/19 20:22 Consultations 10/24/19 21:49 Consult General Surgery Stat Procedures Performed Operation Date: 10/24/19 23:50 Actual Procedures p Laparoscopic Appendectomy - Morgan Cardozo MD Ordered Studies 10/24/19 20:16 CT abd pelvis IV con only Stat Hospital Course (1) Appendicitis: Patient was taken to operating room for laparoscopic appendectomy by Dr. Cardozo. Patient found to have acute appendicitis without perforation or abscess. Patient tolerated procedure well and transferred to recovery then med/surg floor for postoperative care. IV fluids continued, diet advanced as tolerated, PO Percocet with breakthrough Morphine prn pain. POD# 0 vitals stable, afebrile, however had postoperative nausea. She was kept overnight to control nausea. POD # 1, vitals stable, afebrile, nausea resolved, pain moderate limiting ambulation but patient did not want to take narcotics. Advised extra strength Tylenol. Patient did well throughout day and was discharged home on POD # 1 in stable condition. Total Time Total Time Spent Total Time Spent (In Minutes): 30 Total Time Includes: Examination of the Patient, Discharge Planning and Medication Reconciliation Discharge Plan Discharge Items Patient Disposition: Home - Self-Care Reason For Visit: APPENDICITIS Discharge Diagnosis: acute appendicitis Activity: Per Instructions section Non-emergency contact: Surgeon Call non-emergency contact if: you have any medication questions, your pain is not controlled, your pain is worsening, your pain is concerning for you, you have a fever, your temperature is above 101, your wound has increased redness, your wound has increased drainage and your wound pain has increased Follow-up/Referrals: Herve Whitley MD [Primary Care Provider] - Diet: Regular Addtl Attending Provider Instructions: Post-Surgical ~Discharge Instructions Activity Recommendations: - lifting limitation: (10 pounds for 2 weeks), - exercise/sex/sports limit: (nonstrenuous for 2 weeks), - driving or machine use limit: (none for 1 week), - Shower/bathe limit: (may shower) Diet: - Resume previous diet SPECIAL CARE INSTRUCTIONS: - May shower . Let water run over area and pat dry. - Leave steri strips on for one week. - Call the surgeon's office with any questions or concerns - - (ex. temperature higher than 101 degrees F, excessive bleeding or pain). MEDICATIONS: - Resume previous medications unless instructed otherwise by your surgeon. - Ibuprofen 600 mg every 6 hours with food - Tylenol 650 mg every 6 hours as needed FOLLOW UP VISIT: - If not already scheduled, please call the office to schedule a two week follow-up appointment. Office number Pending Studies at Discharge: Yes (Appendix pathology, will be reviewed at follow-up visit) Stand-Alone Forms: Call Back Authorization, [facility], Smoking Cessation Medications and DC Order Prescriptions: Continued acetaminophen [Tylenol] 325 mg Tablet 325 mg PO QID PRN (Reason: Pain) RF: 0 lorazepam 0.5 mg tablet 0.5 mg sublingual BID PRN (Reason: Anxiety) RF: 0 simethicone 125 mg Tablet 125 mg PO UD RF: 0 norethindrone (contraceptive) 0.35 mg tablet 0.35 mg PO DAILY@1700 RF: 0 fluoxetine 20 mg capsule 20 mg PO QAM RF: 0 Discharge Orders: Discharge Order (Routine); Ordered 10/26/19 Ordered By: Mrogan Cardozo Admission Data Admit Date/Time: 10/25/19 02:06 Attending Provider: Morgan Cardozo Admit Provider: Morgan Cardozo Primary Care Provider: Herve Whitley Other Providers: Morgan Cardozo Other Interventions: Discharge Summary Assessment (RN) Last Done: 10/26/19 15:28 DC Date/Time DO NOT enter until pt leaves facility: 10/26/19 16:34
== END 2019-10-26 16:34 | disposition home or self-care (01) ==
LOC: ED 19:55 → 3W 10-25 00:07 → OR 10-25 00:07